=== PATIENT | female | born 1990 | race African-American/Black ===

== ENCOUNTER 2016-09-30 14:37 | Emergency (ER) | payer MEDICAID, OTHER ==
[~2016-09-30 14:37] MED LIST: AUGM875T PO; BENZ100 PO
[2016-09-30 14:39] VITALS: BP 138/77; PULSE 78; RESP 16; TEMP 97.7; O2SAT 98
== END 2016-09-30 20:00 | disposition left against medical advice (07) ==
LOC: NED 14:37
DX: N89.8 Other specified noninflammatory disorders of vagina (principal); Z53.21 Procedure and treatment not carried out due to patient leaving prior to being seen by health care provider
CPT/HCPCS: 99281

== ENCOUNTER 2017-10-09 14:19 | Emergency (ER) | payer MEDICAID ==
[2017-10-09 14:41] VITALS: BP 145/90; PULSE 89; RESP 14; TEMP 98.5; O2SAT 98
--- NOTE | 2017-10-09 21:44 | PD ---
HPI Chief Complaint: Abdominal Pain Time Seen by Provider: 15:01 Travel History International Travel<30 days: No Contact w/Intl Traveler<30days: No Traveled to known affect area: No History of Present Illness HPI 27-year-old female presents to the ED for evaluation of 8/10 cramping abdominal pain with nausea and vaginal discharge 3 days. Patient denies fever, chills, vomiting, changes in bowel habits, vaginal bleeding. States LMP "last week." No treatment attempted at home. PFSH Past Medical History Arthritis: No Blood Disorders: Yes Anxiety: No Depression: No Cardiovascular Problems: No High Cholesterol: No Chemotherapy: No Chest Pain: Yes (PT. WAS DOING EXERCISE; CURRENTLY DENIES) Congestive Heart Failure: No COPD: No Cerebrovascular Accident: No Diabetes: No Diminished Hearing: No Endocrine: No GERD: No Glaucoma: No Genitourinary: No Headaches: No Hepatitis: No Hiatal Hernia: No Hypertension: No Immune Disorder: No Kidney Stones: No Musculoskeletal: No Neurologic: No Psychiatric: No Reproductive: No Respiratory: No Migraines: No Myocardial Infarction: No Radiation Therapy: No Renal Failure: No Seizures: No Sickle Cell Disease: No Sleep Apnea: No Thyroid Disease: No Ulcer: No ?: Not : 1 Para: 1 Past Surgical History Abdominal Surgery: No AICD: No Appendectomy: No Arteriovenous Shunt: No Cardiac Surgery: No Cholecystectomy: No Ear Surgery: No Endocrine Surgery: No Eye Surgery: No Genitourinary Surgery: No Gynecologic Surgery: No Insulin Pump: No Joint Replacement: No Oral Surgery: No Pacemaker: No Thoracic Surgery: No Social History Alcohol Use: No Tobacco Use: No Substance Use: No Allergies-Medications (Allergen,Severity, Reaction): Coded Allergies: No Known Allergies (Verified , 05/15/14) Reported Meds & Prescriptions Reported Meds & Active Scripts Active Tessalon Perles (Benzonatate) 100 Mg Cap 100 Mg PO TID PRN Augmentin (Amoxicillin & Pot Clavulanate) 875 Mg Tab 1 Tab PO BID Review of Systems Except as stated in HPI: all other systems reviewed are Neg Physical Exam Narrative GENERAL: Well-nourished, well-developed -[place] female in no acute distress. SKIN: Focused skin assessment warm/dry. HEAD: Normocephalic. EYES: No scleral icterus. No injection or drainage. RESPIRATORY: No accessory muscle use. MUSCULOSKELETAL: No cyanosis, or edema. Walks with a normal gait. BACK: No obvious deformity. Data Data Last Documented VS Vital Signs Date Time Temp Pulse Resp B/P (MAP) Pulse Ox O2 Delivery O2 Flow Rate FiO2 10/09/17 14:41 98.5 89 14 145/90 (108) 98 Orders Orders Ed Urine Pregnancytest Poc (10/09/17 14:44) Urinalysis - C+S If Indicated (10/09/17 14:44) Complete Blood Count With Diff (10/09/17 14:44) Comprehensive Metabolic Panel (10/09/17 14:44) MDM Medical Decision Making Medical Screen Exam Complete: Yes Emergency Medical Condition: Yes Differential Diagnosis UTI versus STI versus versus other Narrative Course 27-year-old female presents to the ED for evaluation of 3 day history of cramping lower abdominal pain, nausea, vaginal discharge. States LMP "last week." Denies risk of . Patient's afebrile, vitals stable on presentation. Patient seen in the triage area, awaiting medical bed placement. Patient was not in the waiting room when called. She left AGAINST MEDICAL ADVICE. Diagnosis Primary Impression: Left against medical advice Elizabeth Faustin Oct 09, 2017 21:44
== END 2017-10-09 20:35 | disposition left against medical advice (07) ==
LOC: NED 14:19
DX: R10.30 Lower abdominal pain, unspecified (principal); R11.0 Nausea; N89.8 Other specified noninflammatory disorders of vagina
CPT/HCPCS: 99281